=== PATIENT | male | born 1955 | race Caucasian/White ===

== ENCOUNTER 2019-03-09 10:01 | Day surgery (SDC) | payer OTHER ==
[2019-03-06 13:04] VITALS: BMI 34.8
[~2019-03-09] VITALS: Ht 172.7 cm; Wt 107.4 kg
[2019-03-09] VITALS (13 sets, daily range): BP systolic 108–149; BP diastolic 68–92; PULSE 95–116; RESP 11–22; Ht 172.7 cm; Wt 107.4 kg
[2019-03-09] MEDS ORDERED: LACTATED RINGER'S 1,000 ML IV SCH (11:00)
--- NOTE | 2019-03-09 12:03 | PREAC ---
Date/Time of Note Date/Time of Note DATE: 03/09/19 TIME: 12:02 Anesthesia Eval and Record Evaluation Time Pre-Procedure Interview DATE: 03/09/19 TIME: 12:02 Age 63 Sex male NPO: 8 hrs Preoperative diagnosis Nasal bone fracture Planned procedure ORIF, septoplasty Past Medical History Past Medical History: Includes GI: Obesity Surgery & Anesthesia Issues No known issue Meds Anticoagulation: No Beta Gabbi within 24 hr: No Reason Beta Gabbi not given: Pt. not on B-Gabbi No Active Prescriptions or Reported Meds Current Medications Lactated Ringer's 1,000 ml @ 25 mls/hr Q24H IV ; Start 03/09/19 at 11:00 Meds reviewed: Yes Allergies Coded Allergies: No Known Allergy (Unverified , 03/09/19) Allergies Reviewed: Yes Labs/Studies Labs Reviewed: Reviewed by anesthesiologist test: N/A Pre-procedure Exam Last vitals Vital Signs Date Temp Pulse Resp B/P (MAP) Pulse Ox O2 O2 Flow FiO2 Time Delivery Rate 03/09/19 98.1 95 16 115/78 97 Room Air 10:41 (90) Airway: Adequate mouth opening Mallampati: Mallampati II Teeth: Abnormal (Upper partial denture) Lung: Normal Heart: Normal ASA Physical Status ASA physical status: 2 Emergency: None Planned Anesthetic General/MAC: ETT Planned Pain Management Parenteral pain med Pre-operative Attestations Prior to commencing anesthesia and surgery, the patient was re-evaluated, there was verification of: *The patient's identity *The results of appropriate recent lab work and preoperative vital signs *The above evaluation not changing prior to induction *Anesthetic plan, risk benefits, alternative and complications discussed with patient/family; questions answered; patient/family understands, accepts and wishes to proceed. KWASI BLOOM MD Mar 09, 2019 12:03
[2019-03-09] MEDS ORDERED: LIDOCAINE 1%/EPI 30 ML INJ ONE (12:55)
[2019-03-09] MEDS ORDERED: COCAINE 4% 4 ML TOP ONE ×2 (12:56→13:15)
--- NOTE | 2019-03-09 12:59 | HPN ---
Date/Time of Note Date/Time of Note DATE: 03/09/19 TIME: 12:59 Interval H&P Admission Note Pt. seen H&P reviewed: No system changes TORREY PEREZ M.D. Mar 09, 2019 12:59
[2019-03-09] MEDS ORDERED: PROPOFOL 20 ML ONE (13:08)
[2019-03-09] MEDS ORDERED: ROCURONIUM 50 MG INJ ONE (13:08)
[2019-03-09] MEDS ORDERED: GLYCOPYRROLATE 0.4 MG INJ ONE ×3 (13:08→13:46)
[2019-03-09] MEDS ORDERED: LIDOCAINE 2% (SDV) 5 ML INJ ONE (13:08)
[2019-03-09] MEDS ORDERED: SUCCINYLCHOLINE CHLORIDE 100 MG/5 ML SYG IV ONE (13:09)
[2019-03-09] MEDS ORDERED: NEOSTIGMINE 3 MG/3 ML SYRINGE ONE ×2 (13:09→13:46)
[2019-03-09] MEDS ORDERED: MEPERIDINE 100 MG INJ ONE (13:10)
[2019-03-09] MEDS ORDERED: LIDOCAINE 1%/EPI 30 ML INJ INJ ONE (13:15)
[2019-03-09] MEDS ORDERED: CEFAZOLIN 1 GM INJ ONE (13:46)
[2019-03-09] MEDS ORDERED: MIDAZOLAM 1 MG/ML 2 ML INJ IV PRN (14:00)
[2019-03-09] MEDS ORDERED: DIPHENHYDRAMINE 50 MG INJ IV PRN (14:00)
[2019-03-09] MEDS ORDERED: HYDROmorphONE 1 MG/5 ML IV SYRINGE IV PRN ×3 (14:00)
[2019-03-09] MEDS ORDERED: EPHEDrine 25 MG/5 ML SYG IV PRN (14:00)
[2019-03-09] MEDS ORDERED: METOCLOPRAMIDE 10 MG INJ IV PRN (14:00)
[2019-03-09] MEDS ORDERED: LABETALOL HCL 20MG INJ IV PRN (14:00)
[2019-03-09] MEDS ORDERED: FENTAnyl 50 MCG/ML VIAL IV PRN ×3 (14:00)
[2019-03-09] MEDS ORDERED: OXYCODONE/ACETAMINOPHEN (5/325) TAB PO PRN ×2 (14:00)
[2019-03-09] MEDS ORDERED: hydrALAzine 20 MG INJ IV PRN (14:00)
[2019-03-09] MEDS ORDERED: ONDANSETRON 4 MG INJ IV PRN (14:00)
[2019-03-09] MEDS ORDERED: MEPERIDINE 25 MG INJ IV PRN (14:00)
[2019-03-09] MEDS ORDERED: ONDANSETRON 4 MG INJ ONE (14:31)
[2019-03-09] MEDS ORDERED: BACITRACIN/POLYMYXIN 0.9 GM OINT TOP ONE (14:40)
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
--- NOTE | 2019-03-09 15:57 | PAC ---
Date/Time of Note Date/Time of Note DATE: 03/09/19 TIME: 15:57 Post-Anesthesia Notes Post-Anesthesia Note Last documented vital signs Vital Signs Date Temp Pulse Resp B/P (MAP) Pulse Ox O2 O2 Flow FiO2 Time Delivery Rate 03/09/19 102 16 125/76 95 Room Air 15:49 (92) 03/09/19 99.1 15:13 03/09/19 6.0 15:11 Activity: WNL Respiratory function: WNL Cardiovascular function: WNL Mental status: Baseline Pain reasonably controlled: Yes Hydration appropriate: Yes Nausea/Vomiting absent: Yes Comments BT: 98.8 KWASI BLOOM MD Mar 09, 2019 15:57
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
== END 2019-03-09 16:51 | disposition home or self-care (01) ==
LOC: SDS 10:01
PROVIDERS: ATTEND Otolaryngology Otolaryngology/Facial Plastic Surgery
DX: S02.2XXA Fracture of nasal bones, initial encounter for closed fracture (principal); X58.XXXA Exposure to other specified factors, initial encounter; J34.2 Deviated nasal septum
CPT/HCPCS: 21336; 30520; 88300; J0690; J1170; J2175; J2405; J2710